=== PATIENT | male | born 1950 | race Caucasian/White ===

== ENCOUNTER 2020-11-02 09:15 | Outpatient (CLI) | payer MEDICARE, MEDICAID ==
[~2020-11-02 09:15] MED LIST: ALBU18HF INH; ALPR1TAB2 PO; CHOL100015 PO; FLUO40CA2 PO; FURO20TA3 PO; GABA-826 PO; GLUC15006 PO; LACTULOSE PO; LISI-167 PO; LORA-247 PO; OLAN2.5T10 PO; PANT40TA6 PO; POTA10TA5 PO; TIOT18CA INH; VERA120T8 PO; [UNRECOGNIZED DRUG - OTHER] PO; propanolol PO
[2020-11-02] MEDS ORDERED: PROM25TA10 PO (10:22)
[2020-11-02] MEDS ORDERED: OXYC1TAB18 PO (10:22)
[2020-11-02] MEDS ORDERED: ALPR-585 PO (10:22)
== END 2020-11-02 23:59 | disposition home or self-care (01) ==
LOC: STAR 09:15
PROVIDERS: ATTEND Internal Medicine
DX: Z01.812 Encounter for preprocedural laboratory examination (principal); Z20.822 Contact with and (suspected) exposure to COVID-19; R94.31 Abnormal electrocardiogram [ECG] [EKG]
CPT/HCPCS: 93005; U0003

== ENCOUNTER 2020-11-06 13:00 | Day surgery (SDC) | payer MEDICARE, MEDICAID ==
[~2020-11-06] VITALS: Ht 165.1 cm; Wt 81.4 kg
[~2020-11-06 13:00] MED LIST changes: +ACETAMINOPHEN 325 MG TABLET PO PRN; +ALPR-585 PO; +EPHEDRINE 50 MG/ML, 1ML IVPush PRN; +FENTANYL PF 100 MCG/2ML IV PRN; +HYDROmorphone 1 MG/ML, 1ML INJ IVPush PRN; +LABETALOL 5MG/ML, 20ML IV PRN; +ONDANSETRON 2MG/ML, 2ML IVPush PRN; +OXYC1TAB18 PO; +OXYcodone 5 MG/5 ML ORAL.SOL UDC PO PRN; +PROM25TA10 PO; +PROMETHAZINE 25 MG/ML, 1ML IVPush PRN; +PROPOFOL 10 MG/ML, 20ML ONE; +PROPOFOL 50 ML ONE; +hydrALAzine 20 MG/ML, 1ML IV PRN
[2020-11-06 13:34] VITALS: BP 128/78
[2020-11-06] MEDS ORDERED: CHLORHEXIDINE 15 ML UDC PO ONE (14:00)
[2020-11-06] MEDS ORDERED: LACTATED RINGERS 1,000 ML IV SCH (14:00)
[2020-11-06] MEDS ORDERED: LIDOCAINE-MPF 1%, 2ML INFIL ONE (14:00)
[2020-11-06] MEDS ORDERED: EPHEDRINE 50 MG/ML, 1ML ONE (14:26)
== END 2020-11-06 16:05 | disposition home or self-care (01) ==
LOC: OUT 13:00
PROVIDERS: ATTEND Internal Medicine
DX: C15.9 Malignant neoplasm of esophagus, unspecified (principal); K22.2 Esophageal obstruction; J44.9 Chronic obstructive pulmonary disease, unspecified; I25.10 Atherosclerotic heart disease of native coronary artery without angina pectoris; I10 Essential (primary) hypertension; F41.1 Generalized anxiety disorder; F17.210 Nicotine dependence, cigarettes, uncomplicated; Z79.891 Long term (current) use of opiate analgesic; Z79.899 Other long term (current) drug therapy; Z88.8 Allergy status to other drugs, medicaments and biological substances; Z91.013 Allergy to seafood; Z90.49 Acquired absence of other specified parts of digestive tract; Z98.890 Other specified postprocedural states; Z83.3 Family history of diabetes mellitus; Z80.9 Family history of malignant neoplasm, unspecified
CPT/HCPCS: 43237; 43249; C1725; J2704; J7120

== ENCOUNTER 2021-01-15 11:01 | Day surgery (SDC) | payer MEDICARE, MEDICAID ==
[~2021-01-15] VITALS: Ht 165.1 cm; Wt 76.8 kg
[~2021-01-15 11:01] MED LIST changes: -ACETAMINOPHEN 325 MG TABLET PO PRN; -EPHEDRINE 50 MG/ML, 1ML IVPush PRN; -FENTANYL PF 100 MCG/2ML IV PRN; -HYDROmorphone 1 MG/ML, 1ML INJ IVPush PRN; -LABETALOL 5MG/ML, 20ML IV PRN; -ONDANSETRON 2MG/ML, 2ML IVPush PRN; -OXYcodone 5 MG/5 ML ORAL.SOL UDC PO PRN; -PROMETHAZINE 25 MG/ML, 1ML IVPush PRN; -PROPOFOL 10 MG/ML, 20ML ONE; -PROPOFOL 50 ML ONE; -hydrALAzine 20 MG/ML, 1ML IV PRN
[2021-01-15] MEDS ORDERED: METH-639 PO (12:00)
[2021-01-15] MEDS ORDERED: LACTATED RINGERS 1,000 ML IV SCH (12:00)
[2021-01-15] MEDS ORDERED: GABAPENTIN PO (12:00)
[2021-01-15] MEDS ORDERED: CHLORHEXIDINE 15 ML UDC PO ONE (12:00)
[2021-01-15 12:22] VITALS: BP 121/75
[2021-01-15] MEDS ORDERED: FENTANYL PF 100 MCG/2ML ONE (12:57)
[2021-01-15] MEDS ORDERED: HYDROmorphone 1 MG/ML, 1ML INJ IVPush PRN (13:00)
[2021-01-15] MEDS ORDERED: ONDANSETRON 2MG/ML, 2ML IVPush PRN (13:00)
[2021-01-15] MEDS ORDERED: PROMETHAZINE 25 MG/ML, 1ML IVPush PRN (13:00)
[2021-01-15] MEDS ORDERED: FENTANYL PF 100 MCG/2ML IV PRN (13:00)
[2021-01-15] MEDS ORDERED: HYDROcodone/APAP 7.5-325MG/15ML UDC PO PRN (13:00)
[2021-01-15] MEDS ORDERED: OXYcodone 5 MG/5 ML ORAL.SOL UDC PO PRN (13:00)
[2021-01-15] MEDS ORDERED: MEPERIDINE/PF 25MG/0.5ML IVPush PRN (13:00)
== END 2021-01-15 13:20 | disposition home or self-care (01) ==
LOC: OUT 11:01
PROVIDERS: ATTEND Internal Medicine Geriatric Medicine
DX: R13.10 Dysphagia, unspecified (principal); Z53.8 Procedure and treatment not carried out for other reasons; C15.5 Malignant neoplasm of lower third of esophagus; I10 Essential (primary) hypertension; J44.9 Chronic obstructive pulmonary disease, unspecified; F41.9 Anxiety disorder, unspecified; F17.210 Nicotine dependence, cigarettes, uncomplicated; Z20.822 Contact with and (suspected) exposure to COVID-19; Z79.891 Long term (current) use of opiate analgesic; Z79.899 Other long term (current) drug therapy; Z91.018 Allergy to other foods; Z98.890 Other specified postprocedural states; Z83.3 Family history of diabetes mellitus; Z80.9 Family history of malignant neoplasm, unspecified
CPT/HCPCS: 87635; J3010